=== PATIENT | male | born 1995 | race Caucasian/White ===

== ENCOUNTER 2016-10-30 07:10 | Emergency (ER) | payer OTHER ==
[~2016-10-30] VITALS: Ht 188 cm; Wt 97.1 kg
[2016-10-30] MEDS ORDERED: IV NORMAL SALINE 1,000ML 1,000 ML IV ONE (07:30)
--- NOTE | 2016-10-30 07:30 | ED.ADGEN ---
Past History Past Medical History: No Pertinent History Past Surgical History: Tonsillectomy, Other Alcohol Use: Rarely Drug Use: None Adult General HPI HPI Patient is a 21-year-old man, with no significant past no history, who presents to the emergency department with a three-day history of lightheadedness, dizziness, mild frontal headache, and generalized malaise. Patient denies any inciting factors, any recent injuries, travel, surgery, medications, drugs alcohol or tobacco abuse. 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 He states that he is feeling lightheaded as though he might pass out at times, and also so the room is spinning around him at times as well, worse with exertional activity. No syncope. Denies any focal weakness, numbness, tingling, vision changes, complaining of a mild headache and fatigue. States he's had decreased appetite over the last 3 days as well. Nausea, one episode of vomiting that occurred when symptoms first began, no diarrhea, no abdominal pain, no chest pain, no shortness breath, no upper respiratory or lower respiratory type symptoms, no swelling extremities, no rashes, no fevers or chills. Denies any similar symptoms previously. Review of Systems Review of Systems Constitutional: Denies fever or chills [] generalized malaise. Lightheadedness and dizziness. Eyes: Denies change in visual acuity, redness, or eye pain [] HENT: Denies nasal congestion or sore throat [] Respiratory: Denies cough or shortness of breath [] Cardiovascular: No additional information not addressed in HPI [] GI: Denies abdominal pain, nausea, vomiting, bloody stools or diarrhea [] : Denies dysuria or hematuria [] Musculoskeletal: Denies back pain or joint pain [] Integument: Denies rash or skin lesions [] Neurologic: Denies headache, focal weakness or sensory changes [] Endocrine: Denies polyuria or polydipsia [] Current Medications Current Medications Current Medications Medications (Trade) Dose Ordered Sig/Dong Start Time Stop Time Status Last Admin Dose Admin Ondansetron HCl (Zofran) 4 mg 1X ONCE 10/30/16 08:15 10/30/16 08:16 DC 10/30/16 08:03 4 MG Sodium Chloride 1,000 ml @ 1,000 mls/hr 1X ONCE 10/30/16 07:30 5/29/17 08:29 10/30/16 07:38 1,000 MLS/HR Allergies Allergies Allergies Coded Allergies Type Severity Reaction Last Updated Verified No Known Drug Allergies 10/30/16 No Physical Exam Physical Exam Constitutional: Well developed, well nourished, no acute distress, non-toxic appearance. [] HENT: Normocephalic, atraumatic, bilateral external ears normal, oropharynx moist, no oral exudates, nose normal. [] Eyes: PERRLA, EOMI, conjunctiva normal, no discharge. [] Neck: Normal range of motion, no tenderness, supple, no stridor. No nuchal rigidity, negative jolt accentuation test. Cardiovascular:Heart rate regular rhythm, no murmur, S1, S2, rubs or gallops. [] Lungs & Thorax: Bilateral breath sounds clear to auscultation, no wheezing, rhonchi, rales. No chest tenderness or crepitus. Abdomen: Bowel sounds normal, soft, no tenderness, no masses, no pulsatile masses. No rebound, no rigidity, no guarding [][] Skin: Warm, dry, no erythema, no rash. [] Back: No tenderness, no CVA tenderness. [] Extremities: No tenderness, no cyanosis, no clubbing, ROM intact, no edema. Negative Homans sign. [] Neurologic: Alert and oriented X 3, normal motor function, normal sensory function, no focal deficits noted. [] Normal neurologic examination, no nystagmus. Psychologic: Affect normal, judgement normal, mood normal. [] Current Patient Data Vital Signs Vital Signs Date Time Temp Pulse Resp B/P (MAP) Pulse Ox O2 Delivery O2 Flow Rate FiO2 10/30/16 07:19 98.1 69 18 95 Room Air Lab Results Laboratory Tests Test 10/30/16 07:30 10/30/16 07:38 Urine Collection Type Unknown Urine Color Yellow Urine Clarity Clear Urine pH 6.5 Urine Specific [place] 1.020 Urine Protein Neg (NEG-TRACE) Urine Glucose (UA) Neg mg/dL (NEG) Urine Ketones (Stick) Neg mg/dL (NEG) Urine Blood Neg (NEG) Urine Nitrite Neg (NEG) Urine Bilirubin Neg (NEG) Urine Urobilinogen Dipstick 0.2 mg/dL (0.2 mg/dL) Urine Leukocyte Esterase Neg (NEG) Urine RBC Occ /HPF (0-2) Urine WBC Occ /HPF (0-4) Urine Squamous Epithelial Cells Occ /LPF Urine Bacteria 0 /HPF (0-FEW) Urine Mucus Slight /LPF Urine Opiates Screen Neg (NEG) Urine Methadone Screen Neg (NEG) Urine Barbiturates Neg (NEG) Urine Phencyclidine Screen Neg (NEG) Urine Amphetamine/Methamphetamine Neg (NEG) Urine Benzodiazepines Screen Neg (NEG) Urine Cocaine Screen Neg (NEG) Urine Cannabinoids Screen Neg (NEG) Urine Ethyl Alcohol Neg (NEG) White Blood Count 7.4 x10^3/uL (4.0-11.0) Red Blood Count 5.18 x10^6/uL (4.30-5.70) Hemoglobin 15.4 g/dL (13.0-17.5) Hematocrit 44.2 % (39.0-53.0) Mean Corpuscular Volume 85 fL (79-100) Mean Corpuscular Hemoglobin 30 pg (25-35) Mean Corpuscular Hemoglobin Concent 35 g/dL (31-37) Red Cell Distribution Width 12.8 % (11.5-14.5) Platelet Count 217 x10^3/uL (140-400) Neutrophils (%) (Auto) 52 % (31-73) Lymphocytes (%) (Auto) 39 % (24-48) Monocytes (%) (Auto) 5 % (0-9) Eosinophils (%) (Auto) 3 % (0-3) Basophils (%) (Auto) 1 % (0-3) Neutrophils # (Auto) 3.9 x10^3uL (1.8-7.7) Lymphocytes # (Auto) 2.9 x10^3/uL (1.0-4.8) Monocytes # (Auto) 0.4 x10^3/uL (0.0-1.1) Eosinophils # (Auto) 0.2 x10^3/uL (0.0-0.7) Basophils # (Auto) 0.1 x10^3/uL (0.0-0.2) Sodium Level 144 mmol/L (136-145) Potassium Level 4.0 mmol/L (3.5-5.1) Chloride Level 106 mmol/L (98-107) Carbon Dioxide Level 29 mmol/L (21-32) Anion Gap 9 (6-14) Blood Urea Nitrogen 14 mg/dL (8-26) Creatinine 0.9 mg/dL (0.7-1.3) Estimated GFR (Cockcroft-Gault) 106.5 BUN/Creatinine Ratio 16 (6-20) Glucose Level 83 mg/dL (70-99) Calcium Level 9.1 mg/dL (8.5-10.1) Total Bilirubin 1.1 mg/dL (0.2-1.0) H Aspartate Amino Transferase (AST) 13 U/L (15-37) L Alanine Aminotransferase (ALT) 48 U/L (16-63) Alkaline Phosphatase 88 U/L (46-116) Total Protein 7.3 g/dL (6.4-8.2) Albumin 4.1 g/dL (3.4-5.0) Albumin/Globulin Ratio 1.3 (1.0-1.7) Heterophil Agglutinins Negative (NEGATIVE) EKG EKG EC: Sinus rhythm heart rate 71 beats minute, upright axis, QTC of 402, [place] of 198, QRS of 80, no ST elevations or depressions, no evidence of acute ST abnormalities. As interpreted by me. Radiology/Procedures Radiology/Procedures [][place] [address] IMAGING REPORT Signed PATIENT: YADI RICHARDS ACCOUNT: [id number] : 1995 LOCATION: ER AGE: 21 SEX: M EXAM STATUS: REG ER ORD. PHYSICIAN: CANDELARIO CHRIS DO REASON: Dizziness PROCEDURE: CHEST PA & LATERAL PA and lateral chest. History: Dizziness PA and lateral views were taken of the chest. Lungs are clear. Heart is normal in size. There is no pleural effusion. Impression: 1. No acute chest disease. DICTATED AND SIGNED BY: LALO PETERS MD DATE: 10/30/16 0752 CC: CANDELARIO CHRIS DO; PCP,NO ~ Course & Med Decision Making Course & Med Decision Making Pertinent Labs and Imaging studies reviewed. (See chart for details) Patient is well appearing with a normal neurologic examination in the emergency department, afebrile, last use of ibuprofen was yesterday. Denies any fevers or chills, any concerning exposures or injury history. He does work in a correctional facility, but denies any recent concerning history as stated. After discussion, we'll obtain basic laboratory studies, chest x-ray and ECG due to the complaints of dizziness and lightheadedness. Patient also has mild headache, but declined medication for treatment this time, received Zofran for mild nausea with full resolution. Patient's laboratory studies, imaging and ECG were all unremarkable, including patient's mononucleosis test. I did discuss findings with patient, he is resting comfortably at this time, has received IV fluids, vital signs remained stable in sinus rhythm on the monitor. Patient is relieved by these findings, states he is still expressing some feelings of dizziness and lightheadedness, although he is ambulating without difficulty in the emergency department. As stated nausea is resolved. We did discuss concerning symptoms that would prompt return to the emergency department for additional evaluation, benefit of following up with a primary care provider, he states he'll be able to do so, and would have done so today except that it is a holiday. Patient discharged home in stable condition with plan for follow-up, prescription for Zofran, clear and equal return instructions and cautions as stated. Final Impression Final Impression [] Problems: Dragon Disclaimer Dragon Disclaimer This electronic medical record was generated, in whole or in part, using a voice recognition dictation system. Departure: Impression: Primary Impression: Dizziness Disposition: 01 HOME, SELF-CARE Condition: IMPROVED Scripts Ondansetron Hcl (ZOFRAN) 4 Mg Tablet 1 TAB PO Q8HRS Y for NAUSEA, #12 TAB Prov: CANDELARIO CHRIS DO 10/30/16 CANDELARIO CHRIS DO October 30, 2016 07:30
[2016-10-30 07:50] LABS: BASO # 0.1 x10^3/uL (0.0-0.2); BASO % 1 % (0-3); EOS # 0.2 x10^3/uL (0.0-0.7); EOS % 3 % (0-3); HEMATOCRIT 44.2 % (39.0-53.0); HEMOGLOBIN 15.4 g/dL (13.0-17.5); LYMPH # 2.9 x10^3/uL (1.0-4.8); LYMPH % 39 % (24-48); MEAN CORPUSCULAR HEMOGLOBIN 30 pg (25-35); MEAN CORPUSCULAR HGB CONC 35 g/dL (31-37); MEAN CORPUSCULAR VOLUME 85 fL (79-100); MONO # 0.4 x10^3/uL (0.0-1.1); MONO % 5 % (0-9); NEUT # 3.9 x10^3uL (1.8-7.7); NEUT % 52 % (31-73); PLATELET COUNT 217 x10^3/uL (140-400); RED BLOOD COUNT 5.18 x10^6/uL (4.30-5.70); RED CELL DISTRIBUTION WIDTH 12.8 % (11.5-14.5); WHITE BLOOD COUNT 7.4 x10^3/uL (4.0-11.0)
--- NOTE | 2016-10-30 07:56 | RAD ---
PA and lateral chest. History: Dizziness PA and lateral views were taken of the chest. Lungs are clear. Heart is normal in size. There is no pleural effusion. Impression: 1. No acute chest disease.
[2016-10-30 07:59] LABS: AMPHETAMINE/METHAMPHETAMINE NEG (NEG); BARBITURATES NEG (NEG); BENZODIAZEPINES NEG (NEG); CANNABINOIDS NEG (NEG); COCAINE NEG (NEG); METHADONE NEG (NEG); OPIATES NEG (NEG); PHENCYCLIDINE NEG (NEG)
[2016-10-30 08:01] LABS: MONONUCLEOSIS PATIENT NEGATIVE (NEGATIVE)
[2016-10-30 08:02] LABS: ALBUMIN 4.1 g/dL (3.4-5.0); ALBUMIN/GLOBULIN RATIO 1.3 (1.0-1.7); CALCIUM 9.1 mg/dL (8.5-10.1); CREATININE 0.9 mg/dL (0.7-1.3); GFR 106.5; TOTAL BILIRUBIN 1.1 mg/dL (0.2-1.0); TOTAL PROTEIN 7.3 g/dL (6.4-8.2)
[2016-10-30 08:05] LABS: BACTERIA,URINE 0 /HPF (0-FEW); BILIRUBIN,URINE NEG (NEG); CLARITY,URINE CLEAR; COLOR,URINE YELLOW; GLUCOSE,URINE NEG (NEG); NITRITE,URINE NEG (NEG); RBC,URINE OCC /HPF (0-2); SQUAMOUS EPITHELIAL CELL,UR OCC /LPF; UROBILINOGEN,URINE 0.2 mg/dL (0.2 mg/dL); WBC,URINE OCC /HPF (0-4)
[2016-10-30] MEDS ORDERED: ONDANSETRON PF 4 MG/2 ML VIAL. IV ONE (08:15)
[2016-10-30] MEDS ORDERED: ONDA4TAB7 PO (08:17)
[2016-10-30 08:19] VITALS: BP 111/48
--- NOTE | 2016-10-30 08:30 | EKG ---
[address] [address] Test Date: 2016-10-30 Test Time: 07:38:32 Pat Name: YADI RICHARDS Department: Room: Gender: M Wellness Nurse Rn: TOI : 1995 Requested By: CANDELARIO CHRIS Order Number: [id number] Reading MD: Edilberto Pagan Measurements Intervals [place] Rate: 71 P: 31 WI: 198 QRS: 43 QRSD: 80 T: 26 QT: 370 QTc: 402 Interpretive Statements SINUS RHYTHM Electronically Signed On 10-31-2016 10:35:44 CDT by Edilberto Pagan
== END 2016-10-30 08:21 | disposition home or self-care (01) ==
LOC: ER 07:10
DX: R42 Dizziness and giddiness (principal); R51 Headache; R11.0 Nausea
CPT/HCPCS: 36415; 71020; 80053; 80305; 81001; 85027; 86308; 93005; 96361; 96374; 99285; J2405; G0481; J7030